=== PATIENT | male | born 1990 | race African-American/Black ===

== ENCOUNTER 2021-01-30 09:02 | Emergency (ER) | payer SELFPAY ==
[~2021-01-30] VITALS: Ht 182.9 cm; Wt 98.4 kg
[2021-01-30 09:10] VITALS: BP 140/72
--- NOTE | 2021-01-30 09:15 | NUR ---
BIB SELF C/O L EAR PAIN AND PRESSURE FOR 3 DAYS. RATES PAIN 5/10. DENIES DIZZINESS. RESPIRATION REGULAR AND UNLABORED. WILL CONTINUE TO MONITOR THE PATIENT.
--- NOTE | 2021-01-30 10:00 | NUR ---
Patient discharged to home in stable condition. Written and verbal after care instructions given. Patient verbalizes understanding of instruction.
== END 2021-01-30 10:01 | disposition home or self-care (01) ==
LOC: ER 09:10
DX: H61.23 Impacted cerumen, bilateral (principal)